=== PATIENT | female | born 1980 | race Caucasian/White ===

== ENCOUNTER 2024-09-29 10:30 | Emergency (ER) | payer BC, SELFPAY ==
[2024-09-29] VITALS (10 sets, daily range): BP systolic 107–147; BP diastolic 63–72; PULSE 78–92; RESP 18; TEMP 36.9; O2SAT 97–100; BMI 25.4
--- NOTE | 2024-09-29 11:11 | CRLHL7_ITS ---
For Patients: As a result of the Century Cures Act, medical imaging exams and procedure reports are released immediately into your electronic medical record. You may view this report before your referring provider. If you have questions, please contact your health care provider. INDICATION: Periumbilical pain in site of hernia repair TECHNIQUE: CT abdomen and pelvis acquired with 68 cc Isovue 370 IV contrast. COMPARISON: None. FINDINGS: Lower chest: There is a 3 millimeter nodule in the left lower lobe (3/12). Bilateral breast implants. Liver: Unremarkable. Gallbladder and bile ducts: Cholecystectomy. Mild intra and extrahepatic biliary ductal dilation, with the common bile duct measuring 8 millimeters, likely reservoir effect. Pancreas: Unremarkable. Spleen: Unremarkable. Adrenal glands: Unremarkable. Kidneys: Left renal cyst with thin septation. GI tract: No obstruction. Fecalization small bowel loop contents, which can be seen with slow transit. Vasculature: Abdominal aorta is normal in caliber. Mild aortic atherosclerosis. Mesenteric arteries are patent. Lymph nodes: No lymphadenopathy. Peritoneum/Abdominal Wall: Small fat containing periumbilical hernia superior to the umbilicus with narrow neck measuring 3 millimeters (2/77). Sequela of umbilical hernia repair. Trace pelvic fluid. Pelvis: The right ovary is oriented posteriorly to the uterus with corpus luteum. Heterogeneous myometrium with mildly globular appearance of the uterus. Bones: Unremarkable for age. IMPRESSION: Small fat containing periumbilical hernia with narrow neck measuring 3 millimeters. Heterogeneous uterine myometrium with mildly globular appearance. This can be seen with adenomyosis. Consider further evaluation with nonemergent pelvic ultrasound. There is a 3 millimeter nodule in the left lower lobe of the lung. In a high-risk patient, repeat CT can be considered in 12 months. In a low risk patient, no further follow-up is indicated. Please note that all CT scans at this facility use dose modulation, iterative reconstruction, and/or weight-based dosing when appropriate to reduce radiation dose to as low as reasonably achievable. Dictated by Audra Martinez MD @ 09/29/2024 1:29:17 PM (Electronically Signed)
[2024-09-29 11:34] LABS: Lactate* 1.3 mmol/L (0.5-1.9)
--- OUTSIDE RECORDS SUMMARY | 2024-09-29 11:36 | XMS_ITS | Clinical Summary ---
Author Organization [facility] Address [place], [place] [address] Care Team Providers Care Global Sales Executive Name Role Phone [facility] Primary Care Provider Unavailabl e Allergies Active Allergy Reactions Criticality Noted Date Comments Paroxetine Diarrhea,Nausea Only,Headache 08/28/2014 Penicillins Shortness Of Breath,Rash 06/12/2014 Quetiapine Fumarate Sedation 08/17/2014 [place] like a zombie Trazodone Anxiety 08/17/2014 Eye twitching Medications Medication Sig Dispensed Refills Start Date End Date Status SUMAtriptan (IMITREX STATDOSE) 6 mg/0.5 mL crtgIndications:M igraine without status migrainosus, not intractable, unspecified migraine type Inject 6 mg subcutaneous every 2 hours if needed for Migraine. 1 Kit 5 01/19/2017 Active lidocaine 5% (LIDODERM) 5 % patchIndications: Chronic back pain APPLY 1 PATCH TO PAINFUL AREA OF SKIN FOR UP TO 12 HOURS WITHIN A 24-HOUR PERIOD. 30 Patch 2 03/03/2017 Active acetaminophen (TYLENOL) 325 mg tabletIndications :S/P LEEP Take 1-2 tablets by mouth every 4 hours if needed (mild pain). Max acetaminophen dose: 4000mg in 24 hrs. 100 tablet 03/10/2018 Active ibuprofen (ADVIL; MOTRIN) 200 mg tabletIndications :S/P LEEP Take 2-4 tablets by mouth every 6 hours if needed for Pain (mild pain). 100 tablet 03/10/2018 Active esomeprazole (NEXIUM) 40 mg capsuleIndication s:Epigastric pain,Gastroesopha geal reflux disease without esophagitis 1 capsule by mouth Take 30-60 minutes before a meal/food twice a day. 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 Colposcopy advised, not completed. 01/2018 Pap: HSIL, HPV +. 02/21/2018 Colposcopy- VITALIY 2. 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 Tachycardia with heart rate 141-160 beats per mi nute 02/25/2017 Gastroesophageal reflux disease without esophagi tis 02/03/2017 Overview (02/03/2017): EGD 12/2016 hiatal hernia with free reflux, biopsies normal Generalized anxiety disorder 02/22/2015 Elevated C-reactive protein 07/10/2014 Abnormal blood chemistry 07/06/2014 Edema 07/04/2014 Cardiac arrhythmia 07/04/2014 Vitamin D deficiency 07/04/2014 Major depression 06/12/2014 Insomnia 06/12/2014 Chronic bilateral low back pain without sciatica 06/12/2014 Resolved Problems Problem Noted Date Diagnosed Date Resolved Date HSIL (high grade squamous in traepithelial lesion) on Pap smear of cervix 02/09/2017 8 Overview (02/18/2017): 02/09/2017: [place] Advised Generalized anxiety disorder 02/19/2015 08/07/2015 Encounters Date Type Department Care Team Description 09/29/2024 9:10 AM NEWSPAPER MANAGING EDITOR [place] [facility] [place] [address] [place] [address] Edwin Adams MD Abdominal Pain (upper left ) 09/29/2024 Travel 09/29/2024 Nurse Triage [facility] [place] [address] [place] [address] Pcp, No Abdominal Pain from Last 3 Months Immunizations Name Administration Dates Next Due Influenza, IIV4 08/10/2019, 8,09/18/2016,2014 Influenza, IIV4 (=>6mos) MDV 06/29/2017 Pneumococcal Poly,23-Valent (Pneumovax) 06/25/2016 Tdap 04/13/2008 Tuberculin (PPD) 07/10/2014 Family History Medical History Relation Name Comments Lung cancer Father Relation Name Status Comments Father Social History Tobacco Use Types Packs/Day Years Used Date Smoking Tobacco: Former Cigarettes 0.5 7.3 0 11/01/1999 - 02/08/2007 Smokeless Tobacco: Never Tobacco Cessation:Counseling Given: Yes Comments:quit 8 yrs ago Alcohol Use Standard Drinks/Week Comments Yes 0 (1 standard drink = 0.6 oz pur e alcohol) rare PHQ-2 Answer Date Recorded PHQ-2 TOTAL SCORE 0 09/29/2024 Social Connections Answer Date Recorded Do you often feel lonely or isolated from those around you? 0 09/29/2024 Financial Resource Strain Answer Date R ecorded Difficulty of Paying Living Expenses 3 09/29/2024 Difficulty of Paying Living Expenses Not on file 09/29/2024 Food Insecurity Answer Date Recorded Do you worry your food will run out before you are able to buy more? 1 09/29/2024 Transportation Needs Answer Date Record ed Does lack of transportation keep you from medica l appointments? 1 09/29/2024 Does lack of transportation keep you from work, meetings or getting things that you need? 1 09/29/2024 Housing Stability Answer Date Recorded What is your housing situation today? 1 09/29/2024 Sex and Gender Information Value Date Recorded Sex Assigned at Not on file Gender Identity Not on file Sexual Orientation Not on file Obstetrics History Para Term AB IAB SAB Ectopic Multiple Livin g Live Births 3 3 3 0 0 0 0 0 0 3 3 Date Outcome GA Total Labor Labor/2nd/3rd Weight Sex Type Anes PTL Nadine A1 A5 Name Clin 2005 Term F C-Sec tion Living 2006 Term F C-Sec tion Living 2008 Term M C-Sec tion Living Last Filed Vital Signs Vital Sign Reading Time Taken Comments Blood Pressure 138/78 09/29/2024 9:16 AM NEWSPAPER MANAGING EDITOR Pulse 78 09/29/2024 9:16 AM NEWSPAPER MANAGING EDITOR Temperature 37.2 C (99 F) 12/26/2018 8:25 AM NEWSPAPER MANAGING EDITOR Respiratory Rate 16 09/29/2024 9:16 AM NEWSPAPER MANAGING EDITOR Oxygen Saturation 100% 09/29/2024 9:16 AM NEWSPAPER MANAGING EDITOR Inhaled Oxygen Concentration - - Weight 64.9 kg (143 lb 1.6 oz) 09/29/2024 9:16 A M NEWSPAPER MANAGING EDITOR Height 157.5 cm (5' 2) 09/29/2024 9:16 AM NEWSPAPER MANAGING EDITOR Body Mass Index 26.17 09/29/2024 9:16 AM NEWSPAPER MANAGING EDITOR Plan of Treatment Health Maintenance Due Date Last Done Comments HIV for age 15-65 1994 Hepatitis C screening for age 18-79 1997 Tetanus booster 04/13/2018 04/13/2008 Pap test for age 21-65 03/10/2021 8, 02/21/2018, 02/21/2018, Additional history exists COVID-19 vaccine series ( season) 2024 Influenza for age 9-49 07/02/2024 9, 09/15/2018, 06/29/2017, Additional history exists BMI (ht and wt on same day) for age 18+ 09/29/2025 09/29/2024, 01/23/2019, 12/26/2018, Additional history exists Depression screening for age 12+ 09/29/2025 09/29/2024, 01/23/2019, 02/08/2018, Additional history exists Tdap Completed 04/13/2008 Pneumococcal series for age 6-64 Aged Out 06/25/2016 No longer eligible based on patient's age to complete this topic Procedures Procedure Name Priority Date/Time Associated Diagnosis Comments PREDATORY ANIMAL EXTERMINATOR THIN PREP PAP DIAGNOSTIC IMAGED Routine 02/21/2018 11:36 AM CDT HSIL (high grade squamous intraepithelial lesion) on Pap smear of cervix from Last 3 Months or Most Recently Relevant to Health Maintenance Results * (ABNORMAL) PREDATORY ANIMAL EXTERMINATOR THIN PREP PAP DIAGNOSTIC IMAGED (02/21/2018 11:36 AM CDT) Case Report Gynecologic Cytology Report Case: [id number] Authorizing Provider: Grazyna Liu DO Collected: 02/21/2018 1136 Ordering Location: [facility] Received: 02/21/2018 [facility] First Screen: Nancie Pereira Pathologist: Margret Tam MD Specimen: PREDATORY ANIMAL EXTERMINATOR ThinPrep Vial Diagnostic, Cervical 03/01/2018 5:09 PM CDT [facility] INTERPRETATION/ RESULT HIGH GRADE SQUAMOUS INTRAEPITHELIAL LESION (HSIL)(A) (none) 03/01/2018 5:09 PM CDT [facility] IMEN ADEQUACY Satisfactory for evaluation No endocervical component seen 03/01/2018 5:09 PM CDT [facility] HPV REQUEST HPV and PAP 03/01/2018 5:09 PM CDT [facility] Date of LMP [id number] 03/01/2018 5:09 PM CDT [facility] Last Pap Date 02/09/17 03/01/2018 5:09 PM CDT [facility] Last Pap Result HSIL 8 5:09 PM CDT [facility] Abnormal Pap or [place] Bx in last 5 years Yes 03/01/2018 5:09 PM CDT [facility] Menstrual Status Regular Periods 03/01/2018 5:09 PM CDT [facility] [place] Bx Done Today No 03/01/2018 5:09 PM CDT [facility] Additional Information None Given 03/01/2018 5:09 PM CDT [facility] Automated Review Successful 03/01/2018 5:09 PM CDT [facility] Comment:Specimen processed s uccessfully by automated laborer stores device, ThinPrep Imaging System, [employer] ANCILLARY TESTING PREDATORY ANIMAL EXTERMINATOR HPV Ordered, Please see separate report 03/01/2018 5:09 PM CDT [facility] Note The pap test is a screening technique, not a diagnostic procedure. It is used primarily to screen for squamous cancers and precursor lesions. Published studies have shown that it is subject to both false negative and false positive results. The pap test should not be used as the sole means to diagnose or exclude pre-malignant and malignant lesions. Case seen in consultation with Dr. De La O. Interpreted at [facility] ([facility], [facility], [facility], [facility], [facility], [facility], [facility]) 03/01/2018 5:09 PM CDT [facility] Other (Cervical) Non-Blood / Unknown 02/21/2018 11:36 AM CDT 02/21/2018 11:55 AM CDT Grazyna Liu DO PATHOLOGY/CYTOLOGY [facility] [address] [place] [address], from Last 3 Months or Most Recently Relevant to Health Maintenance Advance Directives * Full Code (Latest Code Status on File) Date Activated Date Inactivated Comments 03/10/2018 6:04 AM 03/10/2018 12:51 PM * Full Code Date Activated Date Inactivated Comments 11/06/2015 4:37 PM 11/07/2015 1:02 AM Care Teams Global Sales Executive Relationship Specialty Start Date End Date Huy Dodge PCP - General 03/19/22
[2024-09-29 11:37] LABS: Basophils Absolute Auto 0.06 K/uL (0.00-0.30); Basophils Percent Auto 0.9 % (0.0-3.0); Eosinophils Absolute Auto 0.12 K/uL (0.00-0.50); Eosinophils Percent Auto 1.8 % (0.0-7.0); Hematocrit 41.9 % (33.0-51.0); Hemoglobin* 14.2 gm/dL (12.0-16.0); Immature Granulocytes Abs Auto 0.04 K/uL (0.00-0.30); Immature Granulocytes Pct Auto 0.6 %; Lymphocytes Absolute Auto 1.43 K/uL (0.90-2.90); Lymphocytes Percent Auto 21.4 % (20-44); Mean Corpuscular HGB Conc 34 gm/dL (32-36); Mean Corpuscular Hemoglobin 32 pg (26-34); Mean Corpuscular Volume 93 fL (80-100); Neutrophils Absolute Auto 4.64 K/uL (1.7-7.0); Neutrophils Percent Auto 69.3 % (42.0-72.0); Platelet Count* 190 K/uL (140-440); RDW Coefficient of Variation % 11.9 % (11.5-15.5); White Blood Count* 6.69 K/uL (4.50-11.00)
--- NOTE | 2024-09-29 11:37 | ED.GENADULT ---
HPI - General Adult General Chief complaint: Abdominal Pain Stated complaint: abdominal pain Time Seen by Provider: 09/29/24 11:01 Source: patient Mode of arrival: ambulatory Limitations: no limitations History of Present Illness HPI narrative: 43-year-old female coming in today complaining of abdominal pain going on day 5. The pain is located in the periumbilical region and radiates into the right. She feels nauseated but denies vomiting. No fevers. No diarrhea or constipation, last bowel movement was yesterday was normal. Denies any urinary symptoms like increased urinary frequency, urgency or dysuria. Past surgical history significant for cholecystectomy and umbilical hernia repair. Related Data Home Medications ?Medication ?Instructions ?Recorded ?Confirmed No Known Home Medications 09/29/24 09/29/24 Allergies Allergy/AdvReac Type Severity Reaction Status Date / Time Penicillins Allergy Unknown Verified 09/29/24 12:45 Review of Systems Status of ROS: Reports: 10 or more systems reviewed and unremarkable except as noted in History and below Exam Narrative: Exam Narrative: Well-nourished well-developed patient, clearly uncomfortable. Alert and oriented. Answers questions appropriately. Mood and affect are appropriate. Thoughts are goal oriented and rational. No tangential or magical thinking noted. Patient speaks in full sentences without needing to catch her breath. HEENT: Normocephalic atraumatic. Pupils are equally round reactive to light. Extraocular muscles are intact. Conjunctivae are moist without any icterus noted. Moist mucous membranes. Posterior pharynx is normal. Neck is supple. Cardiovascular: Heart is regular rate and rhythm S1 and S2 are present without any murmurs. Lungs: Clear to auscultation bilaterally no wheezes rhonchi or rales are appreciated. Patient takes deep breaths without any discomfort. Abdomen: Soft, nondistended with normal bowel sounds. Patient has a firm protrusion at the umbilicus that is exquisitely tender to touch. She does have pain radiating into the right. No pain on the left. No suprapubic pain, epigastric pain or upper abdominal pain. Extremities: Bilateral lower extremities are without edema. Skin: Well perfused without any obvious rashes. Const: Vital Signs, click to edit/add: Vital Signs - 24 hr 09/29/24 10:33 09/29/24 12:03 09/29/24 12:15 Temperature 98.4 F Pulse Rate 82 81 Pulse Rate [Right Pulse Oximeter] 92 Respiratory Rate 18 Blood Pressure Blood Pressure [Ri ght Upper Arm] 147/72 H Pulse Oximetry 100 98 98 Oxygen Delivery Me thod Room Air 09/29/24 12:38 09/29/24 12:45 09/29/24 13:00 Temperature Pulse Rate 91 80 82 Pulse Rate [Right Pulse Oximeter] Respiratory Rate Blood Pressure Blood Pressure [Ri ght Upper Arm] Pulse Oximetry 100 99 98 Oxygen Delivery Me thod 09/29/24 13:06 09/29/24 13:15 09/29/24 13:30 Temperature Pulse Rate 78 82 80 Pulse Rate [Right Pulse Oximeter] Respiratory Rate Blood Pressure 115/70 Blood Pressure [Ri ght Upper Arm] Pulse Oximetry 97 97 97 Oxygen Delivery Me thod 09/29/24 13:31 Temperature Pulse Rate 80 Pulse Rate [Right Pulse Oximeter] Respiratory Rate Blood Pressure 107/63 Blood Pressure [Ri ght Upper Arm] Pulse Oximetry 97 Oxygen Delivery Me thod Course Course ED Course: Differential diagnosis includes incarcerated hernia, appendicitis, colitis, ischemic bowel. Patient requesting pain medication received 2 mg of IV morphine which helped for about an hour. This was followed by [facility]. CBC was entirely normal. Chemistries were unremarkable. Normal lactate CRP 1.1. UA showing 1+ leukocyte esterase. Culture pending. Abdominal CT showing a small fat containing periumbilical hernia. No other abnormality which would explain her pain. I spoke to the consulting radiologist to verify that there is no evidence of appendicitis. She states that the appendix was not visualized, however, there were no fat stranding or other signs of inflammation in the right lower quadrant. I spoke to our surgeon Dr. Bassett, who recommended outpatient follow-up for potential revision of her hernia repair. Vital Signs Vital signs: Initial Vital Signs Temperature 98.4 F 09/29/24 10:33 Temperature Source Temporal Artery Scan 09/29/24 10:33 Pulse Rate 92 09/29/24 10:33 Pulse Rhythm Regular 09/29/24 10:33 Respiratory Rate 18 09/29/24 10:33 Blood Pressure 147/72 H 09/29/24 10:33 Blood Pressure Mean 97 09/29/24 10:33 Blood Pressure Position Sitting 09/29/24 10:33 Pulse Oximetry 100 09/29/24 10:33 Oxygen Delivery Method Room Air 09/29/24 10:33 Vital Signs Temperature 98.4 F 09/29/24 10:33 Pulse Rate 92 09/29/24 10:33 Respiratory Rate 18 09/29/24 10:33 Blood Pressure 147/72 H 09/29/24 10:33 Pulse Oximetry 100 09/29/24 10:33 Oxygen Delivery Method Room Air 09/29/24 10:33 Temperature 98.4 F 09/29/24 10:33 Pulse Rate 80 09/29/24 13:31 Respiratory Rate 18 09/29/24 10:33 Blood Pressure 107/63 09/29/24 13:31 Pulse Oximetry 97 09/29/24 13:31 Oxygen Delivery Method Room Air 09/29/24 10:33 Medications Administered Medications: Discontinued Medications Generic Name Dose Route Start Last Admin Trade Name Freq PRN Reason Stop Dose Admin Hydromorphone HCl 0.5 mg 09/29/24 12:46 09/29/24 12:51 Hydromorphone 0.5 Mg/0.5 Ml Inj IVP 09/29/24 12:47 0.5 mg ONCE ONE Administration Morphine Sulfate 2 mg 09/29/24 11:35 09/29/24 11:40 Morphine 2 Mg/Ml Inj IVP 09/29/24 11:36 2 mg ONCE ONE Administration Medical Decision Making MDM Narrative Medical decision making narrative: 43-year-old female with abdominal pain. Sign of the pain corresponds with a small fat containing periumbilical hernia with very small. The patient will follow up patient general surgery. There is no evidence of infection today. She also has pulmonary nodule with and globular appearing myometrium. Patient lives at home with her CT results and she will follow up with primary care. Lab Data Lab results reviewed: Yes I reviewed the patient's lab results Labs: Lab Results 09/29/24 Range/Units 11:33 WBC 6.69 (4.50-11.00) K/uL RBC 4.50 (4.00-5.20) m/uL Hgb 14.2 (12.0-16.0) gm/dL Hct 41.9 (33.0-51.0) % MCV 93 (80-100) fL MCH 32 (26-34) pg MCHC 34 (32-36) gm/dL RDW Coeff of Melva 11.9 (11.5-15.5) % Plt Count 190 (140-440) K/uL Neut % (Auto) 69.3 (42.0-72.0) % Lymph % (Auto) 21.4 (20-44) % [place] % (Auto) 6.0 (0.0-11.0) % Eos % (Auto) 1.8 (0.0-7.0) % Baso % (Auto) 0.9 (0.0-3.0) % Neut # (Auto) 4.64 (1.7-7.0) K/uL Lymph # (Auto) 1.43 (0.90-2.90) K/uL [place] # (Auto) 0.40 (0.00-0.90) K/UL Eos # (Auto) 0.12 (0.00-0.50) K/uL Baso # (Auto) 0.06 (0.00-0.30) K/uL Abs Immat Gran (auto) 0.04 (0.00-0.30) K/uL Imm/Tot Granulo (auto) 0.6 % Sodium 139 (135-149) mmol/L Potassium 4.2 (3.6-5.1) mmol/L Chloride 110 (96-114) mmol/L Carbon Dioxide 24 (20-32) mmol/L Anion Gap 5 L (7-15) mEq/L BUN 18 (5-24) mg/dL Creatinine 0.7 (0.5-1.5) mg/dL Estimated Creat Clear 81.11 Estimated GFR 109 ml/min Glucose 104 (60-115) mg/dL Lactate 1.3 (0.5-1.9) mmol/L Calcium 8.9 (8.4-10.6) mg/dL Total Bilirubin < 0.1 L (0.1-1.5) mg/dL Direct Bilirubin 0.0 (0.0-0.5) mg/dL AST 16 (12-35) U/L ALT 13 (4-35) U/L Alkaline Phosphatase 52 (40-150) U/L C-Reactive Protein 1.1 H (0.5-1.0) mg/dL Total Protein 6.6 (6.0-8.3) g/dL Albumin 4.1 (3.3-5.0) g/dL Lipase 71 (23-300) U/L Urine Color Yellow (Yellow) Urine Appearance Clear (Clear) Urine pH 5.5 (5.0-8.5) Ur Specific [place] <= 1.005 (1.000-1.030) Urine Protein Negative (Negative) Urine Glucose (UA) Negative (Negative) Urine Ketones Negative (Negative) Urine Blood Negative (Negative) Urine Nitrite Negative (Negative) Urine Bilirubin Negative (Negative) Urine Urobilinogen 0.2 (0.2-1.0) Ur Leukocyte Esterase 1+ A (Negative) Urine RBC 0-2 (0-2) Urine WBC 2-5 (0-5) Ur Squamous Epith Cells Few (None-Few) Urine Bacteria Few A (None) Urine HCG, Qual Negative (Negative) Imaging Data CT scan - abdomen: Attestation: I have reviewed the pertinent imaging results. Radiologist's impression: INDICATION: Periumbilical pain in site of hernia repair TECHNIQUE: CT abdomen and pelvis acquired with 68 cc Isovue 370 IV contrast. COMPARISON: None. FINDINGS: Lower chest: There is a 3 millimeter nodule in the left lower lobe (12). Bilateral breast implants. Liver: Unremarkable. Gallbladder and bile ducts: Cholecystectomy. Mild intra and extrahepatic biliary ductal dilation, with the common bile duct measuring 8 millimeters, likely reservoir effect. Pancreas: Unremarkable. Spleen: Unremarkable. Adrenal glands: Unremarkable. Kidneys: Left renal cyst with thin septation. GI tract: No obstruction. Fecalization small bowel loop contents, which can be seen with slow transit. Vasculature: Abdominal aorta is normal in caliber. Mild aortic atherosclerosis. Mesenteric arteries are patent. Lymph nodes: No lymphadenopathy. Peritoneum/Abdominal Wall: Small fat containing periumbilical hernia superior to the umbilicus with narrow neck measuring 3 millimeters (). Sequela of umbilical hernia repair. Trace pelvic fluid. Pelvis: The right ovary is oriented posteriorly to the uterus with corpus luteum. Heterogeneous myometrium with mildly globular appearance of the uterus. Bones: Unremarkable for age. IMPRESSION: Small fat containing periumbilical hernia with narrow neck measuring 3 millimeters. Heterogeneous uterine myometrium with mildly globular appearance. This can be seen with adenomyosis. Consider further evaluation with nonemergent pelvic ultrasound. There is a 3 millimeter nodule in the left lower lobe of the lung. In a high-risk patient, repeat CT can be considered in 12 months. In a low risk patient, no further follow-up is indicated. Discharge Plan Discharge Clinical Impression: Periumbilical hernia Patient Disposition: Home, Self-Care Condition: Stable Additional Instructions: You will need to follow-up with general surgery to discuss revision of your hernia repair. There is also a pulmonary nodule seen on your CT scan which is a small lesion of the lung, this is generally benign but does require follow-up per your primary care provider. Lastly, the uterine lining appeared to be globular which can be a sign of something called adenomyosis which is where endometrial glands are present within the muscles of the uterus. With nothing to be concerned about at this time, however, this is something you should discuss with your primary care provider. Prescriptions: No Action No Known Home Medications Follow Up/Referrals: Provider,Not a Local [Primary Care Provider] - Stand Alone Forms: Ortho-tag Info Instructions
[2024-09-29 11:40] LABS: Appearance Urine Clear (Clear); Bilirubin Urine Negative (Negative); Blood Urine Negative (Negative); Color Urine Yellow (Yellow); Glucose Urine Negative (Negative); Ketones Urine Negative (Negative); Leukocyte Esterase Urine 1+ (Negative); Nitrite Urine Negative (Negative); Protein Urine Negative (Negative); Specific Gravity Urine <= 1.005 (1.000-1.030); Urobilinogen Urine 0.2 (0.2-1.0); pH Urine 5.5 (5.0-8.5)
[2024-09-29] MEDS: MORPHINE 2 MG/ML inj IVP (11:40)
[2024-09-29 11:43] LABS: Ur HCG Qualitative* Negative (Negative)
[2024-09-29 11:44] LABS: Slide Review Reflex No
[2024-09-29 11:51] LABS: Albumin* 4.1 g/dL (3.3-5.0); Bacteria Urine Few; Chloride* 110 mmol/L (96-114); RBC Urine 0-2 (0-2); Sodium* 139 mmol/L (135-149); Squamous Epithelial Cell Urine Few (None-Few)
[2024-09-29 11:52] LABS: Potassium* 4.2 mmol/L (3.6-5.1)
[2024-09-29 11:54] LABS: Alkaline Phosphatase* 52 U/L (40-150); Anion Gap 5 mEq/L (7-15); Aspartate Amino Transferase* 16 U/L (12-35); Blood Urea Nitrogen* 18 mg/dL (5-24); Carbon Dioxide* 24 mmol/L (20-32); Creatinine* 0.7 mg/dL (0.5-1.5); Est. Creatinine Clearance* 81.11; Estimated Glomerular Filt Rate 109 ml/min; Glucose* 104 mg/dL (60-115); Lipase* 71 U/L (23-300); Total Protein* 6.6 g/dL (6.0-8.3)
[2024-09-29 11:55] LABS: Alanine Aminotransferase* 13 U/L (4-35); Calcium* 8.9 mg/dL (8.4-10.6)
[2024-09-29 11:57] LABS: C Reactive Protein* 1.1 mg/dL (0.5-1.0)
[2024-09-29 12:06] LABS: Bilirubin Total* < 0.1 mg/dL (0.1-1.5)
[2024-09-29] MEDS: HYDROmorphone 0.5 mg/0.5 ml inj IVP (12:51)
== END 2024-09-29 14:01 | disposition home or self-care (01) ==
PROVIDERS: Emergency Provider Family Medicine
DX: K42.9 Umbilical hernia without obstruction or gangrene (principal)
CPT/HCPCS: 36415; 74177; 80048; 80076; 81001; 81025; 83605; 83690; 85025; 86140; 87086; 96374; 96375; 99284; J1171; J2270; Q9967

== ENCOUNTER 2024-11-06 06:17 | Day surgery (SDC) | payer BC, SELFPAY ==
[2024-11-06] VITALS (20 sets, daily range): BP systolic 94–129; BP diastolic 57–88; PULSE 79–94; RESP 16–18; TEMP 36.4–36.8; O2SAT 96–99
--- OUTSIDE RECORDS SUMMARY | 2024-11-06 06:26 | XMS_ITS | Clinical Summary ---
Author Organization [facility] [facility] Address [place], [place] [address] Care Team Providers Care Perianesthesia Manager Name Role Phone [facility] Primary Care Provider Unavailabl e Allergies Active Allergy Reactions Criticality Noted Date Comments Paroxetine Diarrhea,Nausea Only,Headache 08/28/2014 Penicillins Shortness Of Breath,Rash 06/12/2014 Quetiapine Fumarate Sedation 08/17/2014 [place] like a zombie Trazodone Anxiety 08/17/2014 Eye twitching Medications No known medications Active Problems Problem Noted Date Diagnosed Date [...] of cervix 02/09/2017 8 Overview (02/18/2017): 02/09/2017: Royal Advised Generalized anxiety disorder 02/19/2015 08/07/2015 Encounters Date Type Department Care Team Description 10/06/2024 2:15 PM CASTING AND CURING OPERATOR Office Visit [facility] [address] [place] [address] Leyda Cunningham PA Pre-Op Exam 10/06/2024 Travel 09/30/2024 Nurse Triage [facility] [address] [place] [address] Edwin Adams MD Abdominal Pain 09/29/2024 9:10 AM CASTING AND CURING OPERATOR Office Visit [facility] [address] [place] [address] Edwin Adams MD Abdominal Pain (upper left ) 09/29/2024 Travel 09/29/2024 Nurse Triage [facility] [address] [place] [address] Pcp, No Abdominal Pain from Last 3 Months Immunizations Name Administration Dates Next Due Influenza, IIV4 08/10/2019, 8,09/18/2016,2014 Influenza, IIV4 (=>6mos) MDV 06/29/2017 Pneumococcal Poly,23-Valent (Pneumovax) 06/25/2016 Td, Preservative Free (age > = 7 Years) 10/06/2024 Tdap 04/13/2008 Tuberculin (PPD) 07/10/2014 Family History [...] = 0.6 oz pur e alcohol) rare [facility] Utilities Answer Date Recorded Do you have trouble paying f or utilities (for example, heat, electricity, water, phone)? Yes 09/29/2024 PHQ-2 Answer Date Recorded PHQ-2 TOTAL SCORE [...] is your housing situation today? 1 09/29/2024 Comments No Sex and Gender Information Value Date Recorded Sex Assigned at Not on file Legal Sex Female 7:07 AM CASTING AND CURING OPERATOR Gender Identity Not on file Sexual Orientation [...] Sign Reading Time Taken Comments Blood Pressure 138/82 10/06/2024 2:08 PM CASTING AND CURING OPERATOR Pulse 94 10/06/2024 2:08 PM CASTING AND CURING OPERATOR Temperature 37.2 C (99 F) 12/26/2018 8:25 AM CASTING AND CURING OPERATOR Respiratory Rate 16 10/06/2024 2:08 PM CASTING AND CURING OPERATOR Oxygen Saturation 98% 10/06/2024 2:08 PM CASTING AND CURING OPERATOR Inhaled Oxygen Concentration - - Weight 63 kg (139 lb) 10/06/2024 2:08 PM CASTING AND CURING OPERATOR Height 157.5 cm (5' 2) 09/29/2024 9:16 AM CASTING AND CURING OPERATOR Body Mass Index 25.42 09/29/2024 9:16 AM CASTING AND CURING OPERATOR Plan of Treatment Health Maintenance Due Date Last Done Comments HIV for age 15-65 1994 Hepatitis C screening for ag e 18-79 1997 Pneumococcal series for age 6-49 (2 of 2 - PCV) 06/25/2017 06/25/2016 Pap test for age 21-65 03/10/2021 8, 02/21/2018, 02/21/2018, Additional history exists COVID-19 vaccine series ( season) 2024 Influenza for age 9-49 07/02/2024 9, 09/15/2018, 06/29/2017, Additional history exists BMI (ht and wt on same day) for age 18+ 09/29/2025 09/29/2024, 01/23/2019, 12/26/2018, Additional history exists Depression screening for age 12+ 09/30/2025 09/30/2024, 09/29/2024, 01/23/2019, Additional history exists Tetanus booster 10/06/2034 10/06/2024, 04/13/2008 Tdap Completed 04/13/2008 Procedures Procedure Name Priority Date/Time Associated Diagnosis Comments OFFICE AUTOMATION TECHNICIAN THIN PREP PAP DIAGNOSTIC IMAGED Routine 02/21/2018 11:36 AM CDT HSIL (high grade squamous intraepithelial lesion) on Pap smear of cervix from Last 3 Months or Most Recently Relevant to Health Maintenance Results * (ABNORMAL) OFFICE AUTOMATION TECHNICIAN THIN PREP PAP DIAGNOSTIC IMAGED (02/21/2018 11:36 AM CDT) Case Report Gynecologic Cytology Report Case: [id number] Authorizing Provider: Grazyna Liu DO Collected: 02/21/2018 1136 Ordering Location: [facility] Received: 02/21/2018 [facility] First Screen: Nancie Pereira Pathologist: Margret Tam MD Specimen: OFFICE AUTOMATION TECHNICIAN ThinPrep Vial Diagnostic, Cervical 03/01/2018 5:09 PM CDT [facility] LABORATORY-C ENTRAL LABORATORY INTERPRETATION/ RESULT HIGH GRADE SQUAMOUS INTRAEPITHELIAL LESION (HSIL)(A) (none) 03/01/2018 5:09 PM CDT [facility] ENTRAL LABORATORY IMEN ADEQUACY Satisfactory for evaluation No endocervical component seen 03/01/2018 5:09 PM CDT [facility] [employer] [facility] ENTRAL LABORATORY HPV REQUEST HPV and PAP 03/01/2018 5:09 PM CDT [facility] ENTRAL LABORATORY Date of LMP [id number] 03/01/2018 5:09 PM CDT [facility] ENTRAL LABORATORY Last Pap Date 02/09/17 03/01/2018 5:09 PM CDT [facility] ENTRAL LABORATORY Last Pap Result HSIL 8 5:09 PM CDT [facility] ENTRAL LABORATORY Abnormal Pap or Royal Bx in last 5 years Yes 03/01/2018 5:09 PM CDT [facility] Menstrual Status Regular Periods 03/01/2018 5:09 PM CDT [facility] ENTRAL LABORATORY Royal Bx Done Today No 03/01/2018 5:09 PM CDT [facility] ENTRSD LABORATORY Additional Information None Given 03/01/2018 5:09 PM CDT [facility] ENTRAL LABORATORY Automated Review Successful 03/01/2018 5:09 PM CDT [facility] ENTRAL LABORATORY Comment:Specimen processed s uccessfully by automated patient admitting clerk device, ThinPrep Imaging System, [employer] ANCILLARY TESTING OFFICE AUTOMATION TECHNICIAN HPV Ordered, Please see separate report 03/01/2018 5:09 PM CDT [facility] Note The pap test is a [...] with Dr. De La O. Interpreted at [facility] (Central Lab, [facility], [facility], [facility], [facility], [facility], [facility]) 03/01/2018 5:09 PM CDT [facility] [employer] LABORATORY-C ENTRAL LABORATORY Other (Cervical) Non-Blood / Unknown 02/21/2018 11:36 AM CDT 02/21/2018 11:55 AM CDT Grazyna Liu DO PATHOLOGY/CYTOLOGY Final Resul t [facility] LABORATORY-CENTRAL LABORATORY [address] [place] [address], [place] from Last 3 Months or Most Recently Relevant to Health Maintenance [place] [address] [id number] [facility] * Guarantor: KALLI HUSTON Account Type Relation to Patient Date of Phone Billing Address [place] [id number] [facility] Advance Directives * Full Code (Latest Code Status on File) Date Activated Date Inactivated Comments 03/10/2018 6:04 AM 03/10/2018 12:51 PM * Full Code Date Activated Date Inactivated Comments 11/06/2015 4:37 PM 11/07/2015 1:02 AM Care Teams Perianesthesia Manager Relationship Specialty Start Date End Date Huy Dodge PCP - General 03/19/22
--- OUTSIDE RECORDS SUMMARY | 2024-11-06 06:26 | XMS_ITS | Clinical Summary ---
Author Organization [facility] Address [address] [place] [phone] Phone Care Team Providers Care Build Automation Engineer Name Role Phone Elsewhere, Pcp Primary Care Provider Unavailabl e Allergies Active Allergy Reactions Criticality Noted Date Comments Penicillins RASH 07/10/2012 Medications HYDROcodone-blas taminophen (VICODIN) 5-500 MG per tablet Take 1 Tab by mouth every six hours as needed. Acetaminophen should be limited to 4000 mg per day. Active oxyCODONE SR (OXYCONTIN) 30 MG 12 hour tablet Take 30 mg by mouth every 12 hours. Do not crush. Active cyclobenzaprine (FLEXERIL) 5 MG tablet Take 5 mg by mouth three times a day as needed. Active Zolpidem Tartrate (AMBIEN OR) Take by mouth. Act dionne promethazine (PHENERGAN) 25 MG tablet Take 1 Tab by mouth every six hours as needed for Nausea. 15 Tab 0 07/10/20 12 Active promethazine (PHENERGAN) 25 MG suppository Insert 1 Suppository into the rectum every six hours as needed for Nausea. 15 Suppository 0 07/11/20 12 Active famotidine (PEPCID) 40 MG tablet Take 1 Tab by mouth one time a day. 15 Tab 0 07/11/20 12 Active Active Problems No known active problems Medical History Medical History Date Comments Chronic back pain Social History Tobacco Use Types Packs/Day Years Used Date Smoking Tobacco: Former Alcohol Use Standard Drinks/Week Comments Yes 0 (1 standard drink = 0.6 oz pur e alcohol) Comments Unknown Sex and Gender Information Value Date Recorded Sex Assigned at Not on file Legal Sex Female 10:57 PM MERCHANDISER SEASONAL Gender Identity Not on file Sexual Orientation Not on file Obstetrics History Last Filed Vital Signs Vital Sign Reading Time Taken Comments Blood Pressure 126/79 07/11/2012 7:13 PM CDT Pulse 95 07/11/2012 7:13 PM CDT Temperature 37.4 C (99.3 F) 07/11/2012 2:23 PM CDT Respiratory Rate 18 07/11/2012 7:13 PM CDT Oxygen Saturation 100% 07/11/2012 7:13 PM CDT Inhaled Oxygen Concentration - - Weight 64.9 kg (143 lb) 07/11/2012 2:23 PM CDT Height 160 cm (5' 3) 07/11/2012 2:23 PM CDT Body Mass Index 25.33 07/11/2012 2:23 PM CDT Plan of Treatment Health Maintenance Due Date Last Done Comments Cervical Cancer Screening 1979 Last pap w/ HPV Testing 1979 Last pap w/o HPV Testing 1979 MAMMO,SCREEN 1979 Hepatitis B Vaccine (Standin g Order) (1 of 3 - 19+ 3-dose series) 1998 PERTUSSIS (Standing Order) 1998 TETANUS (Standing Order) 1998 COVID-19 Vaccine (2023-2 5 season) 2024 Influenza Vaccine Seasonal (Standing Order) (#1) 2024 HPV Vaccine (Standing Order) Aged Out No longer eligible based on patient's age to complete this topic Pneumococcal/PCV20 Vaccine: Pediatrics (2-5 yrs) and At-Risk Patients (6-64 yrs) (Standing Order) Aged Out No longer eligible b ased on patient's age to complete this topic Insurance BCBS OTHER STATE Care Teams Build Automation Engineer Relationship Specialty Start Date End Date Elsewhere, Pcp PCP - General 07/10/12
[2024-11-06] MEDS: 0.9 % SODIUM CHLORIDE 500 ML 500 ML 100 ML IV ×2 (07:00→10:00)
--- NOTE | 2024-11-06 07:18 | W.PM.H&PU ---
History & Physical Update History & Physical Update H&P Reviewed and patient assessed: No changes noted
--- NOTE | 2024-11-06 07:21 | PM.GSPRC ---
Operative Note Date of procedure: 11/06/24 Pre-op diagnosis: 1. Symptomatic umbilical hernia. 2. Previous umbilical hernia repair without mesh. Post-op diagnosis: 1. 3 separate small umbilical defects surrounding previous suture repair. Type of Procedure: 1. Open umbilical hernia repair with mesh. Indications: 43-year-old female with history of umbilical hernia repair during laparoscopic cholecystectomy was seen in the emergency room with a painful umbilical bulge. Patient was then seen in our surgery clinic for evaluation. Patient felt like her bulge just popped out and the pain was severe that made her come to the emergency room. An abdominal CT was obtained that showed fat containing umbilical hernia with no small intestine incarcerated in the hernia. Patient was tolerating regular diet and having regular bowel movements. On clinical exam she had a well-healed supraumbilical surgical scar. At the superior aspect of the umbilicus and to the left of it there were 2 small palpable tender bulges and were not reducible due to patient's discomfort. The largest bulge was approximately marble in size. Given patient's clinical history and her symptoms, an open umbilical hernia repair was recommended. The procedure was discussed in detail. The risks associated procedure including infection, bleeding, hernia recurrence, and the need for additional procedures were all discussed with the patient, and she agreed to proceed. Procedure Description: After discussing the risks and benefits of the procedure, the patient signed informed consent.? The operative site was marked and the patient was brought to the operating room and placed on the operating table in supine position.? Care was taken to pad the patient's pressure points.?? The patient was then intubated by anesthesia.?? The operative site was then prepped and draped in the usual sterile fashion.? A time-out was then performed. A curvilinear skin incision was made with a scalpel just above umbilicus through patient's previously well-healed surgical scar. Subcutaneous tissue was dissected with electrocautery down to the hernia sac and anterior fascia. Scar tissue from previous rib pair was noted and Ethibond sutures were seen in 2 different locations. The sutures were removed if possible. The scar tissue was firm to palpation. Three separate small defects were identified surrounding the previous suture repair. Preperitoneal fat was incarcerated through the hernia defect. This was reduced into preperitoneal space or excised. Those defects were by weakened fascia and all defects were connected to create a common central defect measuring 2 x 2.5 cm. I then developed preperitoneal space for mesh insertion. This was done with cautery. Peritoneum was very thin and at least 2 peritoneal openings were created on the right side of peritoneum and in the center of the hernia defect. These peritoneal defects were closed with 3-0 Vicryl suture. A 6.[address] mesh patch was then inserted into preperitoneal space and secured to the fascia using 0-0 Neurolon interrupted stitches. I examined my closure and no defects were identified between the fascia and the mesh. Fascia was re-approximated over the mesh with a running 2-0 Vicryl stitch. Local anesthetic was injected the surgical site. Subcutaneous fat was reapproximated to cover the fascial closure. An umbilicus was tacked down with interrupted 3-0 Vicryl stitches but umbilicus was very flattened. Subdermal layer was closed with interrupted sutures using 3-0 Vicryl. Skin was closed with 4-0 Monocryl using subcuticular stitch. Steri strips were applied over the incision. I then placed a folded sterile 2 x 2 and 4x4 gauze over the incision and covered it with tape. All counts were correct at the end of the case. Patient tolerated the procedure well and was transferred to PACU without any complications. Findings: Three small separate defect surrounding previous suture repair, those were connected to create a common fascial defect, repaired with mesh. Implants: Ventralex ST mesh. Anesthesia: GETA Surgeon: Lisa Moreland MD Estimated blood loss (mL): 5 Condition: stable Disposition: PACU
[2024-11-06] MEDS: CEFAZOLIN 1 GM inj IVP (07:38)
[2024-11-06] MEDS: LIDOCAINE 1%-EPI 1:100,000 20 ML INFILTRATI (07:48)
[2024-11-06] MEDS: BUPIVACAINE 0.25% 30 ML INJECTION (07:48)
--- NOTE | 2024-11-06 09:18 | W.ANESCHARGE ---
Anesthesia Charges Start Date/Time Anesthesia Start Date: 11/06/24 Anesthesia Start Time: 07:30 Stop Date/Time Anesthesia Stop Date: 11/06/24 Anesthesia Stop Time: 09:13
[2024-11-06] MEDS: fentaNYL 100 MCG/2 ML inj 50 MCG IVP ×2 (09:20→09:30)
[2024-11-06] MEDS: SODIUM CHLORIDE 0.9 % (FLUSH) 10 ML SYRINGE IVF (09:26)
[2024-11-06] MEDS: HYDROmorphone 0.5 mg/0.5 ml inj IVP (09:38)
[2024-11-06] MEDS: hydrOXYzine pamoate 25 MG CAPSULE PO (09:50)
[2024-11-06] MEDS: ACETAMINOPHEN 500 MG TABLET 1000 MG PO (09:50)
[2024-11-06] MEDS: KETAMINE 50 MG/0.5 ML 20 MG in 0.9 % SODIUM CHLORIDE 100 ml 100 ML 200.4 MG IVPB (10:00)
--- NOTE | 2024-11-06 10:47 | SUR.PHASEII ---
Pt tolerating crackers and Sprite. Pt reports pain much better than before. Rates pain 5/10.
[2024-11-06] MEDS: HYDROCODONE-ACETAMIN 5-325 MG 1 TAB PO (11:20)
--- NOTE | 2024-11-06 11:50 | SUR.PHASEI ---
Patient arrived to PACU reporting 8/10. Anesthesia had given multiple different medications with no relief in OR. IV site appeared slightly raised, no coolness noted, no discoloration, IV was dripping to gravity. Fentanyl given with no relief. second dose given. pt denied relief, crying reporting 8/. Bat Boy/Girl had second nurse assess IV, nurse pulled back IV and thought it was positional as drip rate increased when IV pulled back. Bat Boy/Girl inquired about starting a new IV with Anesthesia who verbalized there was no need, that 500 cc of fluid have gone through that IV and infiltration would be much worse if IV was not in correct spot. Bat Boy/Girl verbalized understanding. IV dilaudid was given with no relief. patient now rating pain 10/10. Anesthesia then ordered 20mg of Ketamine to be given. Bat Boy/Girl noted even slower drip of IV fluids and some resistance with flushing. pt denied pain at site, still no coolness noted or discoloration. Bat Boy/Girl Started new IV to R AC prior to infusing Ketamine. Pt reported pain relief starting after about 5 minutes of Ketamine infusing into AC. Pt then brought out to [facility] to continue Phase II recovery.
--- NOTE | 2024-11-06 13:19 | SUR.PHASEII ---
Spoke with patient and about changing of IV. Offered pt to speak with Anesthesia, Surgeon, and patient advocate regarding the changing of the IV, pt declined.
== END 2024-11-06 12:00 | disposition home or self-care (01) ==
PROVIDERS: Visit Provider Surgery
PROC: (CPT 49594; principal; 2024-11-06 07:30)
DX: K42.0 Umbilical hernia with obstruction, without gangrene (principal)
CPT/HCPCS: 49594; 00750; 81025; A9270; C1781; J0330; J0665; J0690; J1100; J1171; J1200; J1885; J2250; J2405; J2704; J3010; J3490; J7030

== ENCOUNTER 2024-11-06 19:37 | Emergency (ER) | payer BC, SELFPAY ==
--- OUTSIDE RECORDS SUMMARY | 2024-11-06 19:44 | XMS_ITS | Clinical Summary ---
Author Organization [facility] Address [place], [place] [address] Care Team Providers Care Literacy Coordinator Name Role Phone [facility] Primary Care Provider Unavailabl e Allergies Active Allergy Reactions Criticality Noted Date Comments Paroxetine Diarrhea,Nausea Only,Headache 08/28/2014 Penicillins Shortness Of Breath,Rash 06/12/2014 Quetiapine Fumarate Sedation 08/17/2014 [place] like a zombie Trazodone Anxiety 08/17/2014 Eye [...] of cervix 02/09/2017 8 Overview (02/18/2017): 02/09/2017: [place] Advised Generalized anxiety disorder 02/19/2015 08/07/2015 Encounters Date Type Department Care Team Description 10/06/2024 2:15 PM VOCATIONAL TRAINING DIRECTOR Office Visit [facility] [address] [place] [address] Leyda Cunningham PA Pre-Op Exam 10/06/2024 Travel 09/30/2024 Nurse Triage [facility] [address] [place] [address] Edwin Adams MD Abdominal Pain 09/29/2024 9:10 AM VOCATIONAL TRAINING DIRECTOR Office Visit [facility] [address] [place] [address] Edwin Adams MD Abdominal Pain (upper left ) 09/29/2024 Travel 09/29/2024 Nurse Triage [facility] [address] [place] [address] Pcp, No Abdominal Pain from Last 3 [...] = 0.6 oz pur e alcohol) rare [facility] Utilities Answer Date Recorded Do you have [...] on file Legal Sex Female 7:07 AM VOCATIONAL TRAINING DIRECTOR Gender Identity Not on file Sexual Orientation [...] Comments Blood Pressure 138/82 10/06/2024 2:08 PM VOCATIONAL TRAINING DIRECTOR Pulse 94 10/06/2024 2:08 PM VOCATIONAL TRAINING DIRECTOR Temperature 37.2 C (99 F) 12/26/2018 8:25 AM VOCATIONAL TRAINING DIRECTOR Respiratory Rate 16 10/06/2024 2:08 PM VOCATIONAL TRAINING DIRECTOR Oxygen Saturation 98% 10/06/2024 2:08 PM VOCATIONAL TRAINING DIRECTOR Inhaled Oxygen Concentration - - Weight 63 kg (139 lb) 10/06/2024 2:08 PM VOCATIONAL TRAINING DIRECTOR Height 157.5 cm (5' 2) 09/29/2024 9:16 AM VOCATIONAL TRAINING DIRECTOR Body Mass Index 25.42 09/29/2024 9:16 AM VOCATIONAL TRAINING DIRECTOR Plan of Treatment Health Maintenance Due Date [...] Procedure Name Priority Date/Time Associated Diagnosis Comments DIRECTOR OF BRAND MARKETING THIN PREP PAP DIAGNOSTIC IMAGED Routine 02/21/2018 11:36 AM CDT HSIL (high grade squamous intraepithelial lesion) on Pap smear of cervix from Last 3 Months or Most Recently Relevant to Health Maintenance Results * (ABNORMAL) DIRECTOR OF BRAND MARKETING THIN PREP PAP DIAGNOSTIC IMAGED (02/21/2018 11:36 AM CDT) Case Report Gynecologic Cytology Report Case: [id number] Authorizing Provider: Grazyna Liu DO Collected: 02/21/2018 1136 Ordering Location: [facility] Received: 02/21/2018 115[facility] First Screen: Nancie Pereira Pathologist: Margret Tam MD Specimen: DIRECTOR OF BRAND MARKETING ThinPrep Vial Diagnostic, Cervical 03/01/2018 5:09 PM CDT [facility] LABORATORY-C ENTRAL LABORATORY INTERPRETATION/ RESULT HIGH GRADE SQUAMOUS INTRAEPITHELIAL LESION (HSIL)(A) (none) 03/01/2018 5:09 PM CDT [facility] ENTRAL LABORATORY IMEN ADEQUACY Satisfactory for evaluation No endocervical component seen 03/01/2018 5:09 PM CDT [facility] [employer] [facility] ENTRAL LABORATORY HPV REQUEST HPV and PAP 03/01/2018 5:09 PM CDT [facility] ENTRAL LABORATORY Date of LMP [id number] 03/01/2018 5:09 PM CDT [facility] ENTRAL LABORATORY Last Pap Date 02/09/17 03/01/2018 5:09 PM CDT [facility] ENTRAL LABORATORY Last Pap Result HSIL 8 5:09 PM CDT [facility] ENTRAL LABORATORY Abnormal Pap or Seymour Bx in last 5 years Yes 03/01/2018 5:09 PM CDT [facility] Menstrual Status Regular Periods 03/01/2018 5:09 PM CDT [facility] ENTRAL LABORATORY Seymour Bx Done Today No 03/01/2018 5:09 PM CDT [facility] ENTRMA LABORATORY Additional Information None Given 03/01/2018 5:09 PM CDT [facility] ENTRAL LABORATORY Automated Review Successful 03/01/2018 5:09 PM CDT [facility] ENTRAL LABORATORY Comment:Specimen processed s uccessfully by automated miter cutter device, ThinPrep Imaging System, [employer] ANCILLARY TESTING DIRECTOR OF BRAND MARKETING HPV Ordered, Please see separate report 03/01/2018 5:09 PM CDT [facility] LABOR[facility]ORY Note The pap test is a [...] with Dr. De La O. Interpreted at [facility] (Central Lab, [facility], [facility], [facility], [facility], [facility]Note 2[facility]) 03/01/2018 5:09 PM CDT [facility] [employer] LABORATORY-C ENTRAL LABORATORY Other (Cervical) Non-Blood / Unknown 02/21/2018 11:36 AM CDT 02/21/2018 11:55 AM CDT Grazyna Liu DO PATHOLOGY/CYTOLOGY Final Resul t [facility] LABORATORY-CENTRAL LABORATORY [address] [place] [address], [place] from Last 3 Months or Most Recently Relevant to Health Maintenance [place] [address] [address] [place] [id number] [facility] * Guarantor: KALLI HUSTON Account Type Relation to Patient Date of Phone Billing Address [place] [address] [place] [id number] [facility] Advance Directives * Full Code (Latest Code Status on File) Date Activated Date Inactivated Comments 03/10/2018 6:04 AM 03/10/2018 12:51 PM * Full Code Date Activated Date Inactivated Comments 11/06/2015 4:37 PM 11/07/2015 1:02 AM Care Teams Literacy Coordinator Relationship Specialty Start Date End Date Huy Dodge PCP - General 03/19/22
--- OUTSIDE RECORDS SUMMARY | 2024-11-06 19:44 | XMS_ITS | Clinical Summary ---
Author Organization [facility] [employer] [facility] Address [address] [place] [phone] Phone Care Team Providers Care Butcher'S Assistant Name Role Phone Elsewhere, Pcp Primary Care [...] on file Legal Sex Female 10:57 PM DIRECTOR OF PARTNER MARKETING Gender Identity Not on file Sexual Orientation [...] complete this topic Insurance BCBS OTHER [place] [facility] Commercial Address: [address] [place] [address] Care Teams Butcher'S Assistant Relationship Specialty Start Date End Date Elsewhere, Pcp PCP - General 07/10/12
[2024-11-06 19:53] VITALS: BP 153/71; PULSE 99; RESP 20; TEMP 37; O2SAT 98; BMI 24.7
[2024-11-06] MEDS: ONDANSETRON ODT 4 MG TAB PO (19:58)
--- OUTSIDE RECORDS SUMMARY | 2024-11-06 21:30 | XMS_ITS | Clinical Summary ---
Author Organization [facility] [employer] [facility] Address [address] [place] [address] Phone Care Team Providers Care Quilting Supervisor Name Role Phone Elsewhere, Pcp Primary Care [...] on file Legal Sex Female 10:57 PM BATTERY REPAIRER Gender Identity Not on file Sexual Orientation [...] topic Insurance BCBS OTHER STATE Care Teams Quilting Supervisor Relationship Specialty Start Date End Date Elsewhere, Pcp PCP - General 07/10/12
--- OUTSIDE RECORDS SUMMARY | 2024-11-06 21:30 | XMS_ITS | Clinical Summary ---
Author Organization [facility] Address [place], [place] [address] Care Team Providers Care Wax Engraver Name Role Phone [facility] Primary Care Provider Unavailabl e Allergies Active Allergy Reactions Criticality Noted Date Comments Paroxetine Diarrhea,Nausea Only,Headache 08/28/2014 Penicillins Shortness Of Breath,Rash 06/12/2014 Quetiapine Fumarate Sedation 08/17/2014 [place] like a zombie Trazodone Anxiety 08/17/2014 Eye [...] of cervix 02/09/2017 8 Overview (02/18/2017): 02/09/2017: [place] Advised Generalized anxiety disorder 02/19/2015 08/07/2015 Encounters Date Type Department Care Team Description 10/06/2024 2:15 PM [employer] Office [place] [facility] [address] [place] [address] Leyda Cunningham PA Pre-Op Exam 10/06/2024 Travel 09/30/2024 Nurse Triage [facility] [place] [address] [place] [address] Edwin Adams MD Abdominal Pain 09/29/2024 9:10 AM [employer] Office Visit [facility] [place] [address] [place] [address] Edwin Adams MD Abdominal Pain (upper left ) 09/29/2024 Travel 09/29/2024 Nurse Triage [facility] [place] [address] [place] [address] Pcp, No Abdominal Pain from Last 3 [...] oz pur e alcohol) rare [facility] Utilities Answer Date Recorded Do you [...] on file Legal Sex Female 7:07 AM [employer] Gender Identity Not on file Sexual Orientation [...] Comments Blood Pressure 138/82 10/06/2024 2:08 PM [employer] Pulse 94 10/06/2024 2:08 PM [employer] Temperature 37.2 C (99 F) 12/26/2018 8:25 AM [employer] Respiratory Rate 16 10/06/2024 2:08 PM [employer] Oxygen Saturation 98% 10/06/2024 2:08 PM [employer] Inhaled Oxygen Concentration - - Weight 63 kg (139 lb) 10/06/2024 2:08 PM [employer] Height 157.5 cm (5' 2) 09/29/2024 9:16 AM [employer] Body Mass Index 25.42 09/29/2024 9:16 AM [employer] Plan of Treatment Health Maintenance Due Date [...] Procedure Name Priority Date/Time Associated Diagnosis Comments COMPANY [employer] THIN PREP PAP DIAGNOSTIC IMAGED Routine 02/21/2018 11:36 AM CDT HSIL (high grade squamous intraepithelial lesion) on Pap smear of cervix from Last 3 Months or Most Recently Relevant to Health Maintenance Results * (ABNORMAL) COMPANY LA[employer] THIN PREP PAP DIAGNOSTIC IMAGED (02/21/2018 11:36 AM CDT) Case Report Gynecologic Cytology Report Case: [id number] Authorizing Provider: Grazyna Liu DO Collected: 02/21/2018 1136 Ordering Location: [facility] Received: 02/21/2018 [facility] First Screen: Nancie Pereira Pathologist: Margret Tam MD Specimen: 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[employer] WORKER ThinPrep Vial Diagnostic, Cervical 03/01/2018 5:09 PM CDT [facility] INTERPRETATION/ RESULT HIGH GRADE SQUAMOUS INTRAEPITHELIAL LESION (HSIL)(A) (none) 03/01/2018 5:09 PM CDT [facility] IMEN ADEQUACY Satisfactory for evaluation No endocervical component seen 03/01/2018 5:09 PM CDT [facility] [employer] [facility] EN[facility] HPV REQUEST HPV and PAP 03/01/2018 5:09 PM CDT [facility] Date of LMP [id number] 03/01/2018 5:09 PM CDT [facility] Last Pap Date 02/09/17 03/01/2018 5:09 PM CDT [facility] Last Pap Result HSIL 8 5:09 PM CDT [facility] Abnormal Pap or Haskell Bx in last 5 years Yes 03/01/2018 5:09 PM CDT [facility] Menstrual Status Regular Periods 03/01/2018 5:09 PM CDT [facility] Haskell Bx Done Today No 03/01/2018 5:09 PM CDT [facility] Additional Information None Given 03/01/2018 5:09 PM CDT [facility] Automated Review Successful 03/01/2018 5:09 PM CDT [facility] Comment:Specimen processed s uccessfully by automated maintenance journeyman device, ThinPrep Imaging System[employer] 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 De La O. Interpreted at [facility] ([facility], [facility], [facility], [facility], [facility], [facility], [facility]) 03/01/2018 5:09 PM CDT [facility] [employer] LABORATORY-C ENTRAL LABORATORY Other (Cervical) Non-Blood / Unknown 02/21/2018 11:36 AM CDT 02/21/2018 11:55 AM CDT Grazyna Liu DO PATHOLOGY/CYTOLOGY Final Resul t [facility] [address] [place] [address], [place] from Last 3 Months or Most Recently Relevant to Health Maintenance [place] [address] [place] [id number] [facility] * Guarantor: KALLI HUSTON Account Type Relation to Patient Date of Phone Billing [place] [place] [id number] [facility] Advance Directives * Full Code (Latest Code Status on File) Date Activated Date Inactivated Comments 03/10/2018 6:04 AM 03/10/2018 12:51 PM * Full Code Date Activated Date Inactivated Comments 11/06/2015 4:37 PM 11/07/2015 1:02 AM Care Teams Wax Engraver Relationship Specialty Start Date End Date Huy Dodge PCP - General 03/19/22
== END 2024-11-06 22:21 | disposition left against medical advice (07) ==
LOC: ED 21:24
DX: Z53.21 Procedure and treatment not carried out due to patient leaving prior to being seen by health care provider (principal)
CPT/HCPCS: A9270